=== PATIENT | male | born 1940 | race Caucasian/White ===

== ENCOUNTER 2017-05-05 05:30 | Day surgery (SDC) | payer OTHER ==
[~2017-05-05] VITALS: Ht 182.9 cm; Wt 89.8 kg
--- NOTE | ~2017-05-05 | EKG ---
[address] [address] ELECTROCARDIOGRAM REPORT Name: GABE BOYLE Room #: 150-6 [facility] M..#: [id number] Admission: 05/05/17 Attend Phys: Rizwan Martinez MD Discharge: Date of : 40 Report #: [id number] THIS REPORT FOR: //name// [facility] Test Date: 2017-05-05 Test Time: 11:08:26 Pat Name: GABE BOYLE Department: Room: 150 Gender: M Nutrition Technician: DOUG : 1940 Requested By: Rizwan Martinez Order Number: [id number] MD: Delfin Pacheco Measurements Intervals [place] Rate: 79 P: RI: QRS: -46 QRSD: 98 T: 43 QT: 377 QTc: 433 Interpretive Statements Atrial fibrillation Left anterior fascicular block Baseline wander in lead(s) V1,V2 No previous ECG available for comparison Electronically Signed On 05-05-2017 16:28:22 HEAD LIBRARIAN by Delfin Pacheco [email or web address] <ELECTRONICALLY SIGNED> By: Delfin Pacheco MD 05/05/17 1628 07 07 Delfin Pacheco MD /JAI
--- NOTE | ~2017-05-05 | O ---
[facility] [place] [address] OPERATIVE REPORT Name: GABE BOYLE Room #: DEP [facility] M.R.#: [id number] Admission: 05/05/17 Attend Phys: Rizwan Martinez MD Discharge: 05/05/17 Date of : 40 Report #: [id number] THIS REPORT FOR: //name// CC: Stiven Martinez DATE OF SERVICE: 05/05/2017 PREOPERATIVE DIAGNOSIS: Tumor of right lower lid and medial canthus. POSTOPERATIVE DIAGNOSIS: Tumor of right lower lid and medial canthus, basal cell carcinoma. PROCEDURE: Excision of tumor of right lower lid and medial canthus with frozen section, control of margins and musculocutaneous flap repair of defect. SURGEON: Rizwan Martinez MD MECHANIC ASSISTANT: None. ANESTHESIA: MAC. COMPLICATIONS: None. 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 He presents today for excision of this lesion with frozen sections and subsequent repair of that defect. Informed consent was obtained to include but not limited to the potential risk for loss of vision, bleeding, infection, failure to improve the problem, the potential need for further surgery or treatment. DESCRIPTION OF PROCEDURE: The patient was taken to the operating room where 2% Xylocaine with epinephrine mixed with equal parts 0.75% Marcaine with Wydase was administered transcutaneously to the right medial canthus, the bridge of the nose, the right lower lid and the medial right upper lid. The patient was subsequently prepped and draped in the usual sterile fashion. A fine tip skin marking pen was then utilized to outline the lesion including 2-3 mm of normal appearing tissue. The incisions were then made with a 15C blade. The deeper dissection was accomplished with a Merle scissor through the orbicularis muscle and through the angular artery. Hemostasis was achieved with diligent pinpoint monopolar cautery. The specimen was then oriented and passed off to the waiting pathologist. She snap froze that specimen and found that she appeared to have basal cell carcinoma left on all margins. [address] [address] OPERATIVE REPORT Name: GABE BOYLE Room #: DEP [facility] M.R.#: [id number] Admission: 05/05/17 Attend Phys: Rizwan Martinez MD Discharge: 05/05/17 Date of : 40 Report #: [id number] An additional 2 mm of tissue was then taken around the entire perimeter of the lesion. It was then oriented for the pathologist as hemostasis was achieved in the field. She snap froze that tissue and found that the margins now appeared to be completely free of tumor. The area was then inspected and a musculocutaneous flap outlined with a fine tip skin marking pen. The relaxing incisions were then made and hemostasis re-achieved. The flap was then undermined and elevated. Hemostasis was once again re-achieved. The flap was then rotated into position and secured with multiple interrupted plain gut suture. The wounds were cleaned and dressed with erythromycin ophthalmic ointment. The patient subsequently transported to the recovery area having tolerated the procedure well with no anesthetic or operative complications being noted. <ELECTRONICALLY SIGNED> By: Rizwan Martinez MD 05/09/17 0620 1339 1402 Rizwan Martinez MD /nt
--- NOTE | ~2017-05-05 | S ---
[facility] [place] [address] SURGICAL PATH RPT PROCEDURE Name: ROBERT RIVERA Room #: 150-6 [facility] M.R.#: [id number] Admission: 05/05/17 Date of : 40 Discharge: Report #: [id number] Path Case #: [id number] PATHOLOGY REPORT COLLECTION DATE: 05/05/2017 RECEIVED DATE: 05/05/2017 SUBMITTING PHYS: Dr. Rizwan Martinez OTHER PHYS: Dr. Stiven Clark SPECIMEN(S) RECEIVED: A.Tumor right medial canthus/ lower lid B.Additional new margins right medial canthus lower lid * * * * * * * * * * * * FINAL DIAGNOSIS: A. Skin, tumor right medial canthus, excision: - BASAL CELL CARCINOMA. - All margins of resection negative; lateral margins are less than 1.0 mm away from the lesion. B. Skin, additional new margin right medial canthus, re-excision: - Negative for malignancy. Skin, additional new margin "lateral," resection: - Negative for malignancy. (IUV:mgr; 05/06/2017) PATHOLOGIST: Georgette Cr M.D. REPORT ELECTRONICALLY SIGNED BY: Georgette Cr M.D. DATE/TIME: 05/06/2017 14:16 * * * * * * * * * * * * GROSS PATHOLOGY: A. Received fresh from the OR, labeled "Robert Rivera" and "tumor right medial canthus/lower lid". It consists of an oriented ellipse of luevano-white skin and subcutaneous tissue measuring 1.6 x 0.6 cm. It is excised to a depth of 0.4 cm. The luevano-white skin is remarkable for a slightly raised irregular luevano lesion measuring 0.6 cm. Superior is designated 12:00. The margins are inked as follow: 12:00-6:00 - blue, 6:00-9:00 - black and 9:00-12:00 - red. The specimen is serially sectioned and entirely submitted for one frozen section. The frozen section is then submitted as A1. B. Received fresh from the OR, labeled "Robert Rivera" and "additional new margins right medial canthus lower lid". It consists of two separately oriented linear fragments of skin and subcutaneous tissue designated by Dr. Martinez as medial and lateral margins. The medial fragment measures 1.8 x 0.2 cm. It is excised to a depth of 0.2 cm. The superior half is inked blue and the inferior half is [address] [address] SURGICAL PATH RPT PROCEDURE Name: ROBERT RIVERA Room #: 150-6 [facility] M.R.#: [id number] Admission: 05/05/17 Date of : 40 Discharge: Report #: [id number] Path Case #: [id number] inked black. The lateral half measures 1.9 x 0.2 cm. It is excised to a depth of 0.2 cm. The superior half is inked red and the inferior half is inked green. Both segments are entirely submitted for one frozen section. The frozen section is then submitted as B1. (CLW:pit; 05/05/2017) FROZEN SECTION DIAGNOSIS: (Rhina Dias M.D.) A. Tumor right medial canthus/lower lid": - Squamoproliferative lesion involving, or very close to, all margins. B. "Additional new margins right medial canthus lower lid": - New medial margin negative for inv tumor. - New lateral margin negative for inv tumor. The case is discussed with Dr. Rizwan Martinez in the operating room immediately following the frozen sections and written reports are placed in the patient's chart. (CLW:pit; 05/05/2017) Frozen section performed by Dr. Marco Antonio Dias at [facility], [address] [place] [address]. CLINICAL HISTORY: Tumor right medial canthus. INITIAL CPT CODE(S): A; 61440, 27912 B; 29116, 27876, 20098 Professional services performed by [facility] at [facility] [address], [place] [address] Technical services performed by [facility] at [address] [place] [address], [address], [place] [address]. [facility] [address] [place] [address] PHONE: [phone] DIRECTOR: Nacho Gibson M.D. * * * END OF REPORT * * *
[~2017-05-05 05:30] MED LIST: ALLOPURINOL 10100 M1 PO; ASPIR 8181 MG PO; ASPIRIN325 PO; BENGAY GREASELE57 GM TP; CARDIZEM CD240 MG PO; COREG6.25 MG PO; ELIQUIS5 MG PO; GEMFIBROZIL 60600 M1 PO; HYDROCHLOROTH12.5 M1 PO; PROTONIX40 M1 PO; ROZEREM 8 MG TAB8 MG PO; SINGULAIR 10 MG10 M1 PO; TRAMADOL 50 MG50 MG PO; TRAZODONE HCL50 MG PO; VITAMIN D31000 UNI2 PO; WELCHOL 625 MG625 M1 PO; XALATAN2.5 ML OPHTHALMIC; XARELTO20 MG PO; ZOLOFT50 MG PO
[2017-05-05 14:16] VITALS: BP 159/88
== END 2017-05-05 14:18 | disposition home or self-care (01) ==
LOC: TBA 05:30 → OR 05:30
DX: C44.112 Basal cell carcinoma of skin of right eyelid, including canthus (principal)
CPT/HCPCS: 50010; 50101; 50398; 51636; 56531; 62110; 62850; 70005